=== PATIENT | female | born 1985 | race African-American/Black ===

== ENCOUNTER 2021-10-28 05:20 | Emergency (ER) | payer OTHER ==
[~2021-10-28] VITALS: Ht 165.1 cm; Wt 49.9 kg
--- NOTE | 2021-10-28 05:55 | NUR ---
BIBSELF FROM HOME C/O FLU LIKE SYMPTOMS +FEVER +COUGH X4 DAYS. PT A/OX4. TOLERATING R/A AT 98%. CONNECTED PT TO POX AND MONITOR. SAFETY MEASURES IN PLACE.
--- NOTE | 2021-10-28 06:13 | NUR ---
DR. LAW SEO AT PT'S BEDSIDE
--- NOTE | 2021-10-28 06:17 | NUR ---
RAC #20G S/L; PATENT AND INTACT. BLOOD, COVID ANTIGEN, AND INFLUENZA SWAB COLLECTED AND SENT TO LAB
--- NOTE | 2021-10-28 06:21 | NUR ---
[employer]OCIATE AT PT'S BEDSIDE
[2021-10-28] MEDS ORDERED: IV NS 0.9% 1,000 ML IV ONE (06:30)
--- NOTE | 2021-10-28 06:33 | NUR ---
URINE COLLECTED AND SENT TO LAB
[2021-10-28 06:56] LABS: BILIRUBIN,URINE NEGATIVE (NEGATIVE); COLOR,URINE YELLOW (YELLOW); LEUKOCYTE ESTERASE ,URINE NEGATIVE (NEGATIVE); NITRITE, URINE NEGATIVE (NEGATIVE); PH,URINE 8.5 (5.0-8.0); PROTEIN,URINE NEGATIVE (NEGATIVE); UGLUCOSE NEGATIVE (NEGATIVE); UROBILINOGEN,URINE 0.2 EU/dL (0.2)
--- NOTE | 2021-10-28 07:15 | NUR ---
IV LINE SALINE LOCKED.
[2021-10-28 07:22] LABS: BACTERIA,URINE Many /HPF (None Seen); RBC,URINE 0-2 /HPF (0-2); WBC,URINE 0-2 /HPF (0-3)
--- NOTE | 2021-10-28 07:25 | NUR ---
RECEIVED PT FROM MAURICE Zaman PT AWAKE AND ALERT RESPIRATION SPONT AND EASY NO SOB WATIING FOR DISPO
[2021-10-28] MEDS ORDERED: ACETAMINOPHEN ES 500 MG TABLET PO ONE (08:00)
[2021-10-28] MEDS ORDERED: ACETAMINOPHEN ES 500 MG TABLET ONE (08:00)
--- NOTE | 2021-10-28 08:10 | NUR ---
covid + per lab. Dr Cota made aware.
[2021-10-28] MEDS ORDERED: Paxlovid PO (08:20)
--- NOTE | 2021-10-28 08:38 | NUR ---
PT FULLY AWKE AND ALERT NO SOB MILD COUGH RESPIRATION SPONT AND EASY NO ACUTE DISTRESS D/C INSTRACTION GIVEN BY ROHIT STEVENSON
[2021-10-28 08:43] VITALS: BP 110/72
== END 2021-10-28 08:44 | disposition home or self-care (01) ==
LOC: ER 05:20
DX: U07.1 COVID-19 (principal); R00.0 Tachycardia, unspecified; E06.3 Autoimmune thyroiditis; Z86.39 Personal history of other endocrine, nutritional and metabolic disease; R51.9 Headache, unspecified; Z87.09 Personal history of other diseases of the respiratory system
CPT/HCPCS: 71045; 81001; 84703; 87086; 87426; 87804; 96360; 99284; C9803; J7030

== ENCOUNTER 2022-01-10 21:10 | Emergency (ER) | payer OTHER ==
[~2022-01-10] VITALS: Ht 152.4 cm; Wt 47.6 kg
[~2022-01-10 21:10] MED LIST: Paxlovid PO
--- NOTE | 2022-01-10 21:17 | NUR ---
BIBSELF C/O N/V FOR THE PAST FEW WEEKS, FEELING DIZZY, 13 WEEKS ABD CRAMPS RIGHT SIDE. PT A/OX4. TOLERATING R/A WELL WITH NO SOB. CONNECTED PT TO POX AND MONITOR. SAFETY MEASURES IN PLACE.
[2022-01-10] MEDS ORDERED: METOCLOPRAMIDE HCL 10 MG/2 ML VIAL ONE (21:28)
[2022-01-10] MEDS ORDERED: IV NS 0.9% 1,000 ML IV ONE (21:30)
[2022-01-10] MEDS ORDERED: METOCLOPRAMIDE HCL 10 MG/2 ML VIAL IV ONE (21:30)
--- NOTE | 2022-01-10 21:38 | NUR ---
URINE COLLECTED AND SENT TO LAB
--- NOTE | 2022-01-10 21:38 | NUR ---
RAC #18G S/L BLOOD COLLECTED AND SENT TO LAB
[2022-01-10 21:47] LABS: BASOPHILS % (AUTO) 0.5 % (0.0-2.0); EOSINOPHILS % (AUTO) 0.5 % (0.0-6.0); HEMATOCRIT 34 % (33-45); HEMOGLOBIN 11.6 g/dL (11.5-14.8); LYMPHOCYTES # (AUTO) 1.7 K/uL (0.8-4.8); LYMPHOCYTES % (AUTO) 23.4 % (20.0-44.0); MEAN CORPUSCULAR HGB CONC 35 g/dl (31.0-36.0); MEAN CORPUSCULAR VOLUME 86 fL (82-100); MONOCYTES # (AUTO) 0.4 K/uL (0.1-1.30); MONOCYTES % (AUTO) 4.9 % (2.0-12.0); NEUTROPHILS # (AUTO) 5.3 K/uL (1.8-8.9); NEUTROPHILS % (AUTO) 70.7 % (43.0-81.0); PLATELET COUNT (AUTO) 267 K/uL (150-450); WHITE BLOOD COUNT (AUTO) 7.5 K/uL (4.3-11.0)
[2022-01-10 21:49] LABS: BILIRUBIN,URINE NEGATIVE (NEGATIVE); COLOR,URINE YELLOW (YELLOW); LEUKOCYTE ESTERASE ,URINE NEGATIVE (NEGATIVE); NITRITE, URINE NEGATIVE (NEGATIVE); PROTEIN,URINE NEGATIVE (NEGATIVE); UGLUCOSE NEGATIVE (NEGATIVE); UROBILINOGEN,URINE 0.2 EU/dL (0.2)
[2022-01-10 21:54] LABS: CALCIUM, SERUM 8.2 mg/dL (8.5-10.1); CREATININE 0.5 mg/dL (0.6-1.3); POTASSIUM 3.4 mmol/L (3.5-5.1)
[2022-01-10] MEDS ORDERED: diphenhydrAMINE HCL 50 MG/ML VIAL ONE (22:05)
[2022-01-10] MEDS ORDERED: diphenhydrAMINE HCL 50 MG/ML VIAL IV ONE (22:30)
[2022-01-10 22:44] VITALS: BP 95/62
--- NOTE | 2022-01-10 22:44 | NUR ---
Patient discharged to home in stable condition. Written and verbal after care instructions given. Patient verbalizes understanding of instruction. IV removed. Catheter intact and site benign. Pressure and 4x4 applied to site. No bleeding noted. PT ambulatory with a steady gait
== END 2022-01-10 22:44 | disposition home or self-care (01) ==
LOC: ER 21:11
DX: O21.0 Mild hyperemesis gravidarum (principal); Z3A.13 13 weeks gestation of pregnancy
CPT/HCPCS: 99284; 96374; 96361; 96375; 85025; 80048; 81003; 36415; J1200; J2765; J7030